=== PATIENT | female | born 1960 | race Hispanic/Latino ===

== ENCOUNTER 2018-02-18 07:40 | Outpatient (CLI) | payer MEDICARE ==
[2018-02-18 08:11] LABS: Hematocrit 42.3 % (30.3-42.9); Hemoglobin 13.7 gm/dl (10.1-14.3); Mean Corpuscular HGB Conc 32 % (30-34); Mean Corpuscular Hemoglobin 25 pg (28-32); Mean Corpuscular Volume 77 fl (79-97); Platelet Count 278 K/mm3 (140-440); Red Blood Count 5.49 M/mm3 (3.65-5.03); Red Cell Distribution Width 16.1 % (13.2-15.2)
[2018-02-18 08:24] LABS: Alanine Aminotransferase 57 units/L (7-56); Albumin 4.2 g/dL (3.9-5); BUN/Creatinine Ratio 22; Blood Urea Nitrogen 11 mg/dL (7-17); Calcium 9.4 mg/dL (8.4-10.2); Chol/HDL Ratio 2.39 %; HDL Cholesterol 58 mg/dL (40-59); Hemolysis Index 1; LDL Cholesterol,Direct 63 mg/dL (50-130)
== END 2018-02-18 07:41 | disposition home or self-care (01) ==
LOC: PET 07:40
PROVIDERS: ATTEND Internal Medicine
DX: R59.9 Enlarged lymph nodes, unspecified (principal); R79.89 Other specified abnormal findings of blood chemistry
CPT/HCPCS: 36415; 80053; 80061; 82164; 82962; 84436; 84443; 85027